=== PATIENT | female | born 1955 | race Caucasian/White ===

== ENCOUNTER → 2017-01-06 | Outpatient (CLI) | payer OTHER | LOC: WI 12:56 | PROVIDERS: ATTEND Internal Medicine | DX: Z12.31 Encounter for screening mammogram for malignant neoplasm of breast (principal) | CPT/HCPCS: 77067; G0202 ==

== ENCOUNTER → 2017-10-30 | Outpatient (CLI) | payer OTHER ==
--- NOTE | 2017-10-30 09:42 | RADIOLOGY REPORT (SQ) ---
EXAM DESCRIPTION: CT LUNG CANCER SCREENING COMPLETED DATE/TIME: 10/30/2017 7:50 am REASON FOR STUDY: ENCTR FOR SCREENING FOR MALIGNANT NEOPLASM OF REPIRATORY ORGANS (Z12.2) Z12.2 ENC NTR SCREEN FOR MALIGNANT NEOPLASM OF RESPIRATORY OR Has the patient had a Chest CT scan within the past year? No Was the patient offered tobacco cessation counseling? Yes Was the patient engaged in shared decision making for this test? Yes Does the patient have signs or symptoms of Lung Cancer? No Is the patient a smoker? Yes How many packs per year? 365 How many years since quitting smoking? Not applicable Patients age: 62 COMPARISON: None. TECHNIQUE: Low Dose CT scan performed of the chest without intravenous contrast for purposes of scre ening for lung cancer. Images reviewed with lung, soft tissue and bone windows. Reconstructed coron al and sagittal MPR images reviewed. All images stored on PACS. All CT scanners at this facility use dose modulation, iterative reconstruction, and/or weight based d osing when appropriate to reduce radiation dose to as low as reasonably achievable (ALARA). [facility]: Dose Right [facility]: CareDose [facility]: Dose Right [facility]: Teradose 4D [facility]: [employer] RADIATION DOSE: 2.8 mGy. . LIMITATIONS: No technical limitations. FINDINGS: LUNG NODULES: No worrisome lung nodules. There are biapical blebs. Minimal biapical ple uroparenchymal scarring without well-circumscribed nodules. Mild changes of obstructive lung disease in the upper lobes. REMAINING LUNGS AND PLEURA: No pleural effusions or calcifications. No pneumothorax. No scarrin g or interstitial changes. HILAR AND MEDIASTINAL STRUCTURES: No identified masses. No abnormal nodes. HEART AND VASCULAR STRUCTURES: No aortic aneurysm. No pericardial effusion. No cardiac devices. CORONARY ARTERY CALCIFICATIONS: No significant calcifications. UPPER ABDOMEN, THYROID, BONES, OTHER SOFT TISSUES: Post cholecystectomy IMPRESSION: BENIGN FINDINGS IN THE LUNGS. NO OTHER CLINICALLY SIGNIFICANT/POTENTIALLY CLINICALLY SIGNIFICANT FINDINGS LUNGRADS: LUNGRADS: 2 BENIGN APPEARANCE OR BEHAVIOR. NODULES WITH A VERY LOW LIKELIHOOD OF BECOMING A CLINICALLY ACTIVE CANCER DUE TO SIZE OR LACK OF GROWTH. MODIFIER: NONE. RECOMMENDATION: Continue annual screening with LDCT in 12 months. COMMENT: CRITERIA: Solid nodule(s): < 6 mm; new < 4 mm. Part solid nodule(s): < 6 mm total diameter on baseline screening. Non solid nodule(s) (GGN): < 20 mm OR ? 20 and unchanged or slowly growing. Category 3 or 4 modules unchanged for ? 3 months. TECHNICAL DOCUMENTATION: JOB ID: [id number] Quality ID # [id number]: Final reports with documentation of one or more dose reduction techniques (e.g., Au tomated exposure control, adjustment of the mA and/or kV according to patient size, use of iterative reconstruction technique) 2010 [facility] Radiology Reading location - IP/workstation name: [email or web address]
== END ==
LOC: RAD 07:25
PROVIDERS: ATTEND Internal Medicine
DX: Z12.2 Encounter for screening for malignant neoplasm of respiratory organs (principal)
CPT/HCPCS: G0297

== ENCOUNTER → 2018-08-06 | Outpatient (CLI) | payer OTHER ==
--- NOTE | 2018-08-06 11:53 | WOMENS IMAGING REPORT ---
EXAM DESCRIPTION: BILAT SCREENING MAMMO W/CAD COMPLETED DATE/TIME: 08/06/2018 7:33 am REASON FOR STUDY: SCREENING MAMMO Z12.31 ENCNTR SCREEN MAMMOGRAM FOR MALIGNANT NEOPLASM OF DAYDAY COMPARISON: Multiple since 2008 TECHNIQUE: Standard craniocaudal and mediolateral oblique views of each breast recorded using digita l acquisition. LIMITATIONS: None. FINDINGS: No masses, calcifications or architectural distortion. No areas of suspicion. Read with the assistance of CAD. .[facility] - R2 C[employer]ova Version 1.3 .[facility] Imaging - R2 Cenova Version 1.3 .[facility] Imaging - R2 Cenova Version 2.4 .[facility] [place]2 Cenova Version 2.4 .[facility] - R2 Group Director Experience Version 9.2 IMPRESSION: NORMAL MAMMOGRAM. BIRADS 1. BREAST DENSITY: b. There are scattered areas of fibroglandular density. BIRAD: 1 NEGATIVE RECOMMENDATION: ROUTINE SCREENING Please continue yearly bilateral screening mammography/tomosynthesis in July 2019 COMMENT: The patient has been notified of the results by letter per SA requirements. Additional no tification policies are in place for contacting patient with suspicious or incomplete findings. Quality ID #[id number]: The [employer] recommends an annual screening mammogram for women aged 40 years or over. This facility utilizes a reminder system to ensure that all patients receive reminder letters, and/or direct phone calls for appointments. This includes reminders for routine scr eening mammograms, diagnostic mammograms, or other Breast Imaging Interventions when appropriate. Th is patient will be placed in the appropriate reminder system. The [employer] (ACR) has developed recommendations for screening MRI of the breast s in certain patient populations, to be used in conjunction with mammography. Breast MRI surveillanc e may be appropriate for women with more than 20% lifetime risk of developing breast cancer as deter mined by genetic testing, significant family history of the disease, or history of mantle radiation f or Hodgkins Disease. ACR Practice Guidelines 2008. TECHNICAL DOCUMENTATION: FINDING NUMBER: (1) ASSESSMENT: (1) JOB ID: [id number] [email or web address]- All Rights Reserved Reading location - IP/workstation name: [email or web address]
== END ==
LOC: WI 06:59
PROVIDERS: ATTEND Internal Medicine
DX: Z12.31 Encounter for screening mammogram for malignant neoplasm of breast (principal)
CPT/HCPCS: 77067

== ENCOUNTER → 2018-12-17 | Outpatient (CLI) | payer OTHER ==
--- NOTE | 2018-12-17 17:20 | RADIOLOGY REPORT (SQ) ---
EXAM DESCRIPTION: CT LUNG CANCER SCREENING COMPLETED DATE/TIME: 12/17/2018 9:33 am REASON FOR STUDY: PERSONAL HISTORY OF NICOTINE DEPENDENCE Z87.891 PERSONAL HISTORY OF NICOTINE DEPE NDENCE Has the patient had a Chest CT scan within the past year? Yes. Was the patient offered tobacco cessation counseling? Yes. Was the patient engaged in shared decision making for this test? Yes. Does the patient have signs or symptoms of Lung Cancer? No. Is the patient a smoker? Yes. How many pack years? 30. How many years since quitting smoking? Current smoker. Patients age: 63. COMPARISON: 10/30/2017. TECHNIQUE: Low Dose CT scan performed of the chest without intravenous contrast for purposes of scre ening for lung cancer. Images reviewed with lung, soft tissue and bone windows. Reconstructed coron al and sagittal MPR images reviewed. All images stored on PACS. All CT scanners at this facility use dose modulation, iterative reconstruction, and/or weight based d osing when appropriate to reduce radiation dose to as low as reasonably achievable (ALARA). [facility]: Dose Right [facility]: CareDose [facility]: Dose Right [facility]: Teradose 4D [facility]: [employer] RADIATION DOSE: CT Rad equipment meets quality standard of care and radiation dose reduction techniq ues were employed. CTDIvol: NaN mGy. DLP: 0 mGy-cm. mGy. . LIMITATIONS: No technical limitations. FINDINGS: LUNG NODULES: 5.5 mm nodule in the right lower lobe (axial series 2, image 285) unchanged . No new nodules or masses. REMAINING LUNGS AND PLEURA: No pleural effusions or calcifications. No pneumothorax. Stable mil d apical scarring. HILAR AND MEDIASTINAL STRUCTURES: No identified masses. No abnormal nodes. HEART AND VASCULAR STRUCTURES: No aortic aneurysm. No pericardial effusion. No cardiac devices. CORONARY ARTERY CALCIFICATIONS: No significant calcifications. UPPER ABDOMEN, THYROID, BONES, OTHER SOFT TISSUES: No significant findings. IMPRESSION: BENIGN FINDINGS IN THE LUNGS. NO OTHER CLINICALLY SIGNIFICANT/POTENTIALLY CLINICALLY SIGNIFICANT FINDINGS LUNGRADS: LUNGRADS: 2 BENIGN APPEARANCE OR BEHAVIOR. NODULES WITH A VERY LOW LIKELIHOOD OF BECOMING A CLINICALLY ACTIVE CANCER DUE TO SIZE OR LACK OF GROWTH. MODIFIER: NONE. RECOMMENDATION: Continue annual screening with LDCT in 12 months. COMMENT: CRITERIA: Solid nodule(s): < 6 mm; new < 4 mm. Part solid nodule(s): < 6 mm total diameter on baseline screening. Non solid nodule(s) (GGN): < 20 mm OR ? 20 and unchanged or slowly growing. Category 3 or 4 modules unchanged for ? 3 months. TECHNICAL DOCUMENTATION: JOB ID: [id number] Quality ID # [id number]: Final reports with documentation of one or more dose reduction techniques (e.g., Au tomated exposure control, adjustment of the mA and/or kV according to patient size, use of iterative reconstruction technique) 2010 [facility] [place] Radiology Reading location - IP/workstation name: [email or web address]-
== END ==
LOC: RAD 08:56
PROVIDERS: ATTEND Internal Medicine
DX: Z12.2 Encounter for screening for malignant neoplasm of respiratory organs (principal); Z87.891 Personal history of nicotine dependence; R91.1 Solitary pulmonary nodule
CPT/HCPCS: G0297

== ENCOUNTER → 2019-08-07 | Outpatient (CLI) | payer OTHER ==
--- NOTE | 2019-08-07 18:09 | WOMENS IMAGING REPORT ---
EXAM DESCRIPTION: 3D SCREENING MAMMO BILAT COMPLETED DATE/TIME: 08/07/2019 8:03 am REASON FOR STUDY: Z12.31 SCREENING MAMMO Z12.31 ENCNTR SCREEN MAMMOGRAM FOR MALIGNANT NEOPLASM OF B RE COMPARISON: Multiple since 2008 EXAM PARAMETERS: Views: Standard craniocaudal and mediolateral oblique views of each breast recorded using digital acquisition and breast tomosynthesis. Read with the assistance of CAD. .[facility] - hetras Airborne Sensor Specialist Version 9.2 LIMITATIONS: None. FINDINGS: No suspicious masses, suspicious calcifications or architectural distortion. No areas of c oncern. IMPRESSION: NEGATIVE MAMMOGRAM. BIRADS 1. BREAST DENSITY: b. There are scattered areas of fibroglandular density. BIRAD: ASSESSMENT: 1 NEGATIVE RECOMMENDATION: ROUTINE SCREENING Please continue yearly bilateral screening mammography/tomosynthesis in August 2020 COMMENT: The patient has been notified of the results by letter per SA requirements. Additional no tification policies are in place for contacting patient with suspicious or incomplete findings. Quality ID #[id number]: The [employer] recommends an annual screening mammogram for women aged 40 years or over. This facility utilizes a reminder system to ensure that all patients receive reminder letters, and/or direct phone calls for appointments. This includes reminders for routine scr eening mammograms, diagnostic mammograms, or other Breast Imaging Interventions when appropriate. Th is patient will be placed in the appropriate reminder system. TECHNICAL DOCUMENTATION: FINDING NUMBER: (1) ASSESSMENT: (1) JOB ID: [id number] [employer]- All Rights Reserved Reading location - IP/workstation name: [email or web address]
== END ==
LOC: WI 07:30
PROVIDERS: ATTEND Internal Medicine
DX: Z12.31 Encounter for screening mammogram for malignant neoplasm of breast (principal)
CPT/HCPCS: 77063; 77067

== ENCOUNTER → 2020-08-27 | Outpatient (CLI) | payer OTHER ==
--- NOTE | 2020-08-27 12:01 | WOMENS IMAGING REPORT ---
EXAM DESCRIPTION: 3D SCREENING MAMMO BILAT IMAGES COMPLETED DATE/TIME: 08/27/2020 8:14 am REASON FOR STUDY: Z12.31 ENCNTR SCREEN MAMMOGRAM FOR MALIGNANT NEOPLASM OF BREAST Z12.31 ENCNTR SCR EEN MAMMOGRAM FOR MALIGNANT NEOPLASM OF DAYDAY COMPARISON: 08/07/2019, 08/06/2018, 01/06/2017 EXAM PARAMETERS: Standard craniocaudal and mediolateral oblique views of each breast recorded using digital acquisition and breast tomosynthesis. Read with the assistance of CAD. .[facility] - [employer] Manager Film Version 9.2 LIMITATIONS: None. FINDINGS: Findings present which are benign by mammographic criteria. No suspicious masses, calcific ations or architectural distortion. Pertinent benign findings: Circumscribed nodular densities seen bilaterally demonstrate long-standing stability. Benign mammographic findings may include one or more of the following: Smooth masses, popcorn/rim/coa rse calcifications, asymmetries, post-procedure changes, and lesions with long-standing stability. IMPRESSION: BENIGN MAMMOGRAPHIC FINDINGS. BIRADS 2 BREAST DENSITY: b. There are scattered areas of fibroglandular density. BIRAD: ASSESSMENT: 2 BENIGN FINDING(S) RECOMMENDATION: ROUTINE SCREENING COMMENT: The patient has been notified of the results by letter per SA requirements. Additional no tification policies are in place for contacting patient with suspicious or incomplete findings. Quality ID #[id number]: The [employer] recommends an annual screening mammogram for women aged 40 years or over. This facility utilizes a reminder system to ensure that all patients receive reminder letters, and/or direct phone calls for appointments. This includes reminders for routine scr eening mammograms, diagnostic mammograms, or other Breast Imaging Interventions when appropriate. Th is patient will be placed in the appropriate reminder system. TECHNICAL DOCUMENTATION: FINDING NUMBER: (1) ASSESSMENT: (1) JOB ID: [id number] 2010 [employer]- All Rights Reserved Reading location - IP/workstation name: [email or web address]
== END ==
LOC: WI 07:28
PROVIDERS: ATTEND Internal Medicine
DX: Z12.31 Encounter for screening mammogram for malignant neoplasm of breast (principal)
CPT/HCPCS: 77063; 77067